=== PATIENT | female | born 1930 | race Caucasian/White ===

== ENCOUNTER 2017-06-08 13:58 | Inpatient (IN) | payer OTHER, MEDICAID ==
[~2017-06-08] VITALS: Ht 144.8 cm; Wt 54.9 kg
[2017-06-08 14:24] VITALS: BP 135/68
[2017-06-08] MEDS ORDERED: ALBUTEROL SULFATE/IPRATROPIU 3 ML SOL IH ONE ×2 (14:40→16:00)
[2017-06-08 15:13] LABS: BASOPHILS # (AUTO) 0.1 K/uL (0.00-0.22); BASOPHILS % (AUTO) 2.4 % (0.0-2.0); EOSINOPHILS % (AUTO) 0.4 % (0.0-4.0); HEMATOCRIT 42.8 % (36-48); HEMOGLOBIN 14.1 g/dL (12.0-16.0); LYMPHOCYTES # (AUTO) 1.1 K/uL (2.5-16.5); LYMPHOCYTES % (AUTO) 18.6 % (20.5-51.1); MEAN CORPUSCULAR HEMOGLOBIN 30 pg (27-31); MEAN CORPUSCULAR HGB CONC 33 g/dL (33-37); MEAN CORPUSCULAR VOLUME 91 fL (80-94); MONOCYTES # (AUTO) 0.9 K/uL (0.8-1.0); MONOCYTES % (AUTO) 14.9 % (1.7-9.3); NEUTROPHILS # (AUTO) 3.9 K/uL (1.8-7.7); NEUTROPHILS % (AUTO) 63.7 % (42.2-75.2); PLATELET COUNT (AUTO) 172 K/uL (140-450); RED BLOOD CELL COUNT(AUTO) 4.72 MIL/uL (4.20-5.40); RED CELL DISTRIBUTION WIDTH 11.8 % (11.6-13.7)
[2017-06-08 15:30] LABS: ANION GAP 12.8 (8-16); CARBON DIOXIDE 29.7 mmol/L (21-32); CHLORIDE 102 mmol/L (98-107); CREATININE 1.3 mg/dL (0.6-1.3); GLUCOSE 187 mg/dL (74-106); POTASSIUM 3.5 mmol/L (3.5-5.1); SODIUM SERUM 141 mmol/L (136-145); UREA NITROGEN, BLOOD 25 mg/dL (7-18)
[2017-06-08 15:43] LABS: ALBUMIN 3.6 g/dL (3.4-5.0); ASPARTATE AMINOTRANSFERASE 16 U/L (15-37); TOTAL BILIRUBIN 0.7 mg/dL (0.0-1.0)
[2017-06-08] MEDS ORDERED: LEVOFLOXACIN 750 MG/D5W PREMIX 150 ML IV ONE (16:00)
[2017-06-08] MEDS ORDERED: NACL 0.9% 1,000 ML IV ONE (16:00)
[2017-06-08] MEDS ORDERED: HYDROcodone/APAP 7.5/325 MG 1 TAB PO PRN (16:20)
[2017-06-08] MEDS ORDERED: ONDANSETRON 4 MG/2 ML VIAL IVP PRN (16:20)
[2017-06-08] MEDS ORDERED: ACETAMINOPHEN 325 MG TAB PO PRN (16:20)
[2017-06-08] MEDS ORDERED: ALBUTEROL SULFATE/IPRATROPIU 3 ML SOL IH PRN (16:25)
[2017-06-08] MEDS ORDERED: CLINDAMYCIN 600 MG in DEXTROSE 5% 50 ML IV ONE (16:25)
[2017-06-08 17:29] LABS: PROTHROMBIN TIME 10.5 secs (10.8-13.4)
[2017-06-08] MEDS: NACL 0.9% 1,000 ML IV SCH (17:30)
[2017-06-08] MEDS ORDERED: ERGO2000 PO (17:45)
[2017-06-08] MEDS ORDERED: ATEN25TA7 PO (17:45)
[2017-06-08 18:00] LABS: CHOL/HDL RATIO 2.8 (1-4.5); FREE T4 (FREE THYROXINE) 1.25 ng/dL (0.76-1.46); MAGNESIUM 2.3 mg/dL (1.8-2.4); PHOSPHORUS 3.7 mg/dL (2.5-4.9); THYROID STIMULATING HORMONE 0.57 uIU/mL (0.34-3.74)
[2017-06-08] MEDS ORDERED: NITROGLYCERIN 0.4 MG TAB SL PRN (18:05)
[2017-06-08 18:10] VITALS: BP 152/71
[2017-06-08] MEDS: ALBUTEROL SULFATE/IPRATROPIU 3 ML SOL IH SCH (19:13)
[2017-06-08 20:00] VITALS: BP 136/48
[2017-06-08] MEDS ORDERED: CLINDAMYCIN 600 MG/4 ML VIAL ONE (20:07)
[2017-06-08] MEDS: DOCUSATE SODIUM 100 MG GELCAP PO SCH (20:54)
[2017-06-08] MEDS: ATORVASTATIN 20 MG TAB PO SCH (20:55)
[2017-06-08] MEDS: CLINDAMYCIN 600 MG in DEXTROSE 5% 50 ML IV SCH (21:05)
[2017-06-09] VITALS: BP 119/56
[2017-06-09 04:00] VITALS: BP 145/55
[2017-06-09] MEDS ORDERED: CLINDAMYCIN 600 MG/4 ML VIAL ONE (05:24)
[2017-06-09] MEDS: CLINDAMYCIN 600 MG in DEXTROSE 5% 50 ML IV SCH ×3 (05:31→21:39)
[2017-06-09 06:01] LABS: BASOPHILS # (AUTO) 0.1 K/uL (0.00-0.22); BASOPHILS % (AUTO) 2.1 % (0.0-2.0); EOSINOPHILS % (AUTO) 0.5 % (0.0-4.0); HEMATOCRIT 35.3 % (36-48); LYMPHOCYTES % (AUTO) 20.8 % (20.5-51.1); MEAN CORPUSCULAR HEMOGLOBIN 31 pg (27-31); MEAN CORPUSCULAR HGB CONC 34 g/dL (33-37); MEAN CORPUSCULAR VOLUME 90 fL (80-94); MONOCYTES # (AUTO) 0.8 K/uL (0.8-1.0); MONOCYTES % (AUTO) 16.9 % (1.7-9.3); NEUTROPHILS # (AUTO) 2.9 K/uL (1.8-7.7); NEUTROPHILS % (AUTO) 59.7 % (42.2-75.2); PLATELET COUNT (AUTO) 137 K/uL (140-450); RED BLOOD CELL COUNT(AUTO) 3.92 MIL/uL (4.20-5.40); RED CELL DISTRIBUTION WIDTH 12.1 % (11.6-13.7); WHITE BLOOD COUNT (AUTO) 4.8 K/uL (4.8-10.8)
[2017-06-09] MEDS: ALBUTEROL SULFATE/IPRATROPIU 3 ML SOL IH SCH ×3 (06:25→19:44)
[2017-06-09 07:13] LABS: MAGNESIUM 2.1 mg/dL (1.8-2.4); PHOSPHORUS 3.7 mg/dL (2.5-4.9)
[2017-06-09 07:18] LABS: ANION GAP 13.2 (8-16); CARBON DIOXIDE 26.4 mmol/L (21-32); CHLORIDE 107 mmol/L (98-107); CREATININE 0.9 mg/dL (0.6-1.3); GLUCOSE 124 mg/dL (74-106); POTASSIUM 3.6 mmol/L (3.5-5.1); SODIUM SERUM 143 mmol/L (136-145); UREA NITROGEN, BLOOD 25 mg/dL (7-18)
[2017-06-09 08:00] VITALS: BP 139/58
[2017-06-09] MEDS: DOCUSATE SODIUM 100 MG GELCAP PO SCH ×2 (09:14→21:40)
[2017-06-09] MEDS: ASPIRIN 81 MG TAB.CHEW PO SCH (09:15)
[2017-06-09] MEDS: LISINOPRIL 5 MG TAB PO SCH (09:15)
[2017-06-09 12:00] VITALS: BP 166/73
[2017-06-09] MEDS: NACL 0.9% 1,000 ML IV SCH (12:53)
[2017-06-09] MEDS ORDERED: ATENOLOL 25 MG TAB PO SCH (14:00)
[2017-06-09 16:00] VITALS: BP 141/59
[2017-06-09 20:00] VITALS: BP 115/76
[2017-06-09] MEDS: ATORVASTATIN 20 MG TAB PO SCH (21:40)
[2017-06-10] VITALS: BP 155/66
[2017-06-10 04:00] VITALS: BP 155/68
[2017-06-10] MEDS: CLINDAMYCIN 600 MG in DEXTROSE 5% 50 ML IV SCH ×2 (05:34→13:17)
[2017-06-10 06:37] LABS: HEMOGLOBIN 12.2 g/dL (12.0-16.0); MEAN CORPUSCULAR HEMOGLOBIN 31 pg (27-31); MEAN CORPUSCULAR HGB CONC 34 g/dL (33-37); MEAN CORPUSCULAR VOLUME 91 fL (80-94); PLATELET COUNT (AUTO) 154 K/uL (140-450); RED BLOOD CELL COUNT(AUTO) 3.95 MIL/uL (4.20-5.40); RED CELL DISTRIBUTION WIDTH 12.6 % (11.6-13.7); WHITE BLOOD COUNT (AUTO) 5.9 K/uL (4.8-10.8)
[2017-06-10 06:38] LABS: ANION GAP 11.4 (8-16); CARBON DIOXIDE 26.3 mmol/L (21-32); CHLORIDE 107 mmol/L (98-107); CREATININE 0.7 mg/dL (0.6-1.3); GLUCOSE 115 mg/dL (74-106); LYMPHOCYTES % (AUTO) 21.7 % (20.5-51.1); MONOCYTES % (AUTO) 12.8 % (1.7-9.3); NEUTROPHILS % (AUTO) 63.7 % (42.2-75.2); POTASSIUM 3.7 mmol/L (3.5-5.1); SODIUM SERUM 141 mmol/L (136-145); UREA NITROGEN, BLOOD 16 mg/dL (7-18)
[2017-06-10 06:39] LABS: BASOPHILS % (AUTO) 0.4 % (0.0-2.0); EOSINOPHILS # (AUTO) 0.1 K/uL (0-0.4); EOSINOPHILS % (AUTO) 1.4 % (0.0-4.0); LYMPHOCYTES # (AUTO) 1.3 K/uL (2.5-16.5); MONOCYTES # (AUTO) 0.8 K/uL (0.8-1.0); NEUTROPHILS # (AUTO) 3.7 K/uL (1.8-7.7)
[2017-06-10 06:49] LABS: MAGNESIUM 1.9 mg/dL (1.8-2.4); PHOSPHORUS 3.2 mg/dL (2.5-4.9)
[2017-06-10] MEDS: ALBUTEROL SULFATE/IPRATROPIU 3 ML SOL IH SCH ×2 (06:52→13:12)
[2017-06-10 08:00] VITALS: BP 154/64
[2017-06-10] MEDS: NACL 0.9% 1,000 ML IV SCH (08:17)
[2017-06-10] MEDS ORDERED: ATENOLOL 25 MG TAB PO SCH (09:00)
[2017-06-10] MEDS ORDERED: CHOLECALCIFEROL 1,000 IU TAB PO SCH (09:00)
[2017-06-10] MEDS ORDERED: LEVOFLOXACIN 750 MG/D5W PREMIX 150 ML IV SCH (09:00)
[2017-06-10] MEDS ORDERED: ERGOCALCIFEROL PO SCH (09:00)
[2017-06-10] MEDS: DOCUSATE SODIUM 100 MG GELCAP PO SCH (09:21)
[2017-06-10] MEDS: ASPIRIN 81 MG TAB.CHEW PO SCH (09:21)
[2017-06-10] MEDS: LISINOPRIL 5 MG TAB PO SCH (09:22)
[2017-06-10 12:07] VITALS: BP 176/61
[2017-06-10] MEDS ORDERED: LACT-2 (12:45)
[2017-06-10] MEDS ORDERED: LEVO750T2 PO (12:45)
[2017-06-10] MEDS ORDERED: CLIN300C2 PO (12:45)
[2017-06-10] MEDS ORDERED: LISINOPRIL 20 MG TAB PO SCH (13:30)
[2017-06-10] MEDS ORDERED: LISI-420 PO (15:29)
[2017-06-10] MEDS ORDERED: ALBU0.0912 IH (15:29)
[2017-06-10 16:00] VITALS: BP 144/59
[2017-06-11] MEDS ORDERED: LISINOPRIL 20 MG TAB PO SCH ×2 (09:00)
== END 2017-06-10 16:45 | disposition home or self-care (01) | DRG 177 ==
LOC: MED 13:58 → UNDOADMIN 16:21 → MTU 16:21
PROVIDERS: ADMIT Family Medicine; ATTEND Family Medicine
DX: J69.0 Pneumonitis due to inhalation of food and vomit (principal); J96.01 Acute respiratory failure with hypoxia; N17.0 Acute kidney failure with tubular necrosis; R65.10 Systemic inflammatory response syndrome (SIRS) of non-infectious origin without acute organ dysfunction; M94.0 Chondrocostal junction syndrome [Tietze]; E66.3 Overweight; I10 Essential (primary) hypertension; Z68.26 Body mass index [BMI] 26.0-26.9, adult; Z88.0 Allergy status to penicillin
CPT/HCPCS: 36415; 71045; 80048; 80053; 82150; 83036; 83605; 83690; 83735; 83880; 84100; 84439; 84443; 84484; 85025; 85610; 85730; 87040; 87081; 93005; 94640; 99285; J1956; J3490; J7030; J7060; J7620; Q0092

== ENCOUNTER 2017-06-12 11:02 | Emergency (ER) | payer OTHER, MEDICAID ==
[~2017-06-12] VITALS: Ht 152.4 cm; Wt 72.6 kg
[~2017-06-12 11:02] MED LIST: ALBU0.0912 IH; ATEN25TA7 PO; CLIN300C2 PO; ERGO2000 PO; LACT-2; LEVO750T2 PO; LISI-420 PO
[2017-06-12 11:09] VITALS: BP 158/82
[2017-06-12] MEDS ORDERED: VITD1000 PO (11:16)
[2017-06-12] MEDS ORDERED: BACI1CAP6 PO (11:17)
[2017-06-12] MEDS ORDERED: LISI-420 PO (11:17)
[2017-06-12] MEDS ORDERED: CLIN300C2 PO (11:17)
[2017-06-12] MEDS ORDERED: ALBUTEROL 0.083% 2.5 MG/3 ML NEBU INH ONE (12:40)
[2017-06-12] MEDS ORDERED: methylPREDNISolone SS 125 MG/2 ML VIAL IVP ONE (12:40)
[2017-06-12] MEDS ORDERED: IPRATROPIUM 0.02% 0.5 MG/2.5 ML NEBU INH ONE (12:40)
[2017-06-12 13:41] LABS: BASOPHILS # (AUTO) 0.1 K/uL (0.00-0.22); EOSINOPHILS # (AUTO) 0.1 K/uL (0-0.4); HEMOGLOBIN 12.8 g/dL (12.0-16.0); LYMPHOCYTES # (AUTO) 1.2 K/uL (2.5-16.5); LYMPHOCYTES % (AUTO) 13.8 % (20.5-51.1); MEAN CORPUSCULAR HEMOGLOBIN 30 pg (27-31); MEAN CORPUSCULAR HGB CONC 34 g/dL (33-37); MEAN CORPUSCULAR VOLUME 88 fL (80-94); MONOCYTES # (AUTO) 0.6 K/uL (0.8-1.0); NEUTROPHILS # (AUTO) 6.5 K/uL (1.8-7.7); NEUTROPHILS % (AUTO) 77.2 % (42.2-75.2); PLATELET COUNT (AUTO) 202 K/uL (140-450); RED BLOOD CELL COUNT(AUTO) 4.32 MIL/uL (4.20-5.40); RED CELL DISTRIBUTION WIDTH 11.8 % (11.6-13.7); WHITE BLOOD COUNT (AUTO) 8.5 K/uL (4.8-10.8)
[2017-06-12 14:24] VITALS: BP 134/75
[2017-06-12 16:19] LABS: ANION GAP 13.6 (8-16); CARBON DIOXIDE 26.5 mmol/L (21-32); CHLORIDE 104 mmol/L (98-107); CREATININE 0.9 mg/dL (0.6-1.3); GLUCOSE 127 mg/dL (74-106); POTASSIUM 4.1 mmol/L (3.5-5.1); SODIUM SERUM 140 mmol/L (136-145); UREA NITROGEN, BLOOD 18 mg/dL (7-18)
[2017-06-12 16:26] LABS: ALBUMIN 3.2 g/dL (3.4-5.0); ASPARTATE AMINOTRANSFERASE 17 U/L (15-37); TOTAL BILIRUBIN 0.4 mg/dL (0.0-1.0)
== END 2017-06-12 14:23 | disposition home or self-care (01) ==
LOC: MED 11:02
DX: J45.909 Unspecified asthma, uncomplicated (principal); F17.210 Nicotine dependence, cigarettes, uncomplicated; Z71.6 Tobacco abuse counseling; I10 Essential (primary) hypertension; Z88.0 Allergy status to penicillin
CPT/HCPCS: 36415; 71045; 80053; 83735; 83880; 84484; 85025; 85379; 93005; 94640; 96374; 99285; J2930; J7613; J7644; Q0092

== ENCOUNTER 2018-11-29 11:16 | Emergency (ER) | payer OTHER, MEDICAID ==
[~2018-11-29] VITALS: Ht 152.4 cm; Wt 72.6 kg
[~2018-11-29 11:16] MED LIST changes: -ATEN25TA7 PO; +BACI1CAP6 PO; -ERGO2000 PO; -LACT-2; +VITD1000 PO
--- NOTE | 2018-11-29 11:24 | NUR ---
PT BIB WHEELCHAIR TO ER BED 6
[2018-11-29 11:25] VITALS: BP 145/76
[2018-11-29] MEDS ORDERED: LISI10TA11 PO (11:30)
[2018-11-29] MEDS ORDERED: ERGO2000 PO (11:30)
[2018-11-29] MEDS ORDERED: ATEN25TA7 PO (11:30)
--- NOTE | 2018-11-29 11:40 | NUR ---
Labs drawn and walked over to lab. IV established to left AC, 20 gauge, flushed with NS flush.
[2018-11-29 11:52] LABS: BASOPHILS % (AUTO) 0.5 % (0.0-2.0); EOSINOPHILS % (AUTO) 0.3 % (0.0-4.0); HEMATOCRIT 39.9 % (36-48); HEMOGLOBIN 13.3 g/dL (12.0-16.0); LYMPHOCYTES # (AUTO) 0.8 K/uL (2.5-16.5); LYMPHOCYTES % (AUTO) 9.3 % (20.5-51.1); MEAN CORPUSCULAR HEMOGLOBIN 31 pg (27-31); MEAN CORPUSCULAR HGB CONC 33 g/dL (33-37); MEAN CORPUSCULAR VOLUME 92.1 fL (80-94); MONOCYTES # (AUTO) 0.6 K/uL (0.8-1.0); MONOCYTES % (AUTO) 7.3 % (1.7-9.3); NEUTROPHILS # (AUTO) 6.9 K/uL (1.8-7.7); NEUTROPHILS % (AUTO) 82.6 % (42.2-75.2); PLATELET COUNT (AUTO) 189 K/uL (140-450); RED BLOOD CELL COUNT(AUTO) 4.33 MIL/uL (4.20-5.40); RED CELL DISTRIBUTION WIDTH 13.2 % (11.6-13.7)
--- NOTE | 2018-11-29 11:53 | NUR ---
Patient returned from CT scan. RN re-evaluating patient at bedside.
[2018-11-29 11:56] LABS: WHITE BLOOD COUNT (AUTO) 8.3 K/uL (4.8-10.8)
--- NOTE | 2018-11-29 11:58 | NUR ---
Bib by son sent from clinic for evaluation of left sided abdominal of 10/10 continous, aching pain since last night. Denies N/V/D, denies fever or chills. Lower left abdomen is round, soft and tender to touch. Hx: HTN Allergies: Penicillin
[2018-11-29 12:07] LABS: ALBUMIN 3.8 g/dL (3.4-5.0); ANION GAP 12.3 (8-16); ASPARTATE AMINOTRANSFERASE 13 U/L (15-37); CARBON DIOXIDE 27.6 mmol/L (21-32); CHLORIDE 103 mmol/L (98-107); GLUCOSE 116 mg/dL (74-106); LIPASE 291 U/L (73-393); POTASSIUM 3.9 mmol/L (3.5-5.1); SODIUM SERUM 139 mmol/L (136-145); TOTAL BILIRUBIN 0.7 mg/dL (0.0-1.0); UREA NITROGEN, BLOOD 23 mg/dL (7-18)
--- NOTE | 2018-11-29 12:22 | NUR ---
Provided patient a urinal hat. Unable to obtain urine.
[2018-11-29] MEDS ORDERED: MORPHINE SULFATE 4 MG/ML SYR IVP ONE (13:15)
[2018-11-29] MEDS ORDERED: NACL 0.9% 1,000 ML IV ONE (13:35)
--- NOTE | 2018-11-29 13:43 | NUR ---
Emmanuel taken to CT scan via guryudi by
--- NOTE | 2018-11-29 13:57 | NUR ---
Patient returned from CT scan.
--- NOTE | 2018-11-29 14:47 | NUR ---
Dr. Blake re-evaluating patient at bedside.
[2018-11-29 16:00] VITALS: BP 165/66
--- NOTE | 2018-11-29 16:05 | NUR ---
Patient discharged with v/s stable. Written and verbal after care instructions given and explained. Patient alert, oriented and verbalized understanding of instructions. Ambulatory with steady gait. All questions addressed prior to discharge. ID band removed. Patient advised to follow up with PMD. Rx of MOTRIN 800MG, ZOFRAN 8MG, NORCO 5MG-325MG given. Patient educated on indication of medication including possible reaction and side effects. Opportunity to ask questions provided and answered.
[2018-12-02] MEDS ORDERED: HYDR-5122 PO (13:27)
[2018-12-02] MEDS ORDERED: CIPR500T4 PO (13:27)
== END 2018-11-29 16:00 | disposition home or self-care (01) ==
LOC: MED 11:16
DX: S37.012A Minor contusion of left kidney, initial encounter (principal); N28.1 Cyst of kidney, acquired; I10 Essential (primary) hypertension; Z79.899 Other long term (current) drug therapy; Z88.0 Allergy status to penicillin; X58.XXXA Exposure to other specified factors, initial encounter; Y93.89 Activity, other specified; Y92.89 Other specified places as the place of occurrence of the external cause; Y99.8 Other external cause status
CPT/HCPCS: 36415; 74176; 74177; 80053; 81002; 83690; 85025; 96374; 99284; J2270; J7030; Q9967

== ENCOUNTER 2018-12-16 10:25 | Emergency (ER) | payer OTHER, MEDICAID ==
[~2018-12-16] VITALS: Ht 137.2 cm; Wt 55.0 kg
[~2018-12-16 10:25] MED LIST changes: -ALBU0.0912 IH; +ATEN25TA7 PO; -BACI1CAP6 PO; +CIPR500T4 PO; -CLIN300C2 PO; +ERGO2000 PO; +HYDR-5122 PO; -LEVO750T2 PO; -LISI-420 PO; +LISI10TA11 PO; -VITD1000 PO
[2018-12-16 10:33] VITALS: BP 164/71
--- NOTE | 2018-12-16 10:57 | NUR ---
PATIENT AMBULATED TO BED 8
--- NOTE | 2018-12-16 11:04 | NUR ---
ECG BEING DONE AT THE BEDSIDE.
--- NOTE | 2018-12-16 11:10 | NUR ---
DR SZYMANSKI AT BEDSIDE FOR PT EVALUATION
[2018-12-16 11:30] LABS: BASOPHILS % (AUTO) 0.4 % (0.0-2.0); EOSINOPHILS # (AUTO) 0.1 K/uL (0-0.4); EOSINOPHILS % (AUTO) 0.9 % (0.0-4.0); HEMATOCRIT 31.1 % (36-48); HEMOGLOBIN 10.3 g/dL (12.0-16.0); LYMPHOCYTES # (AUTO) 0.8 K/uL (2.5-16.5); LYMPHOCYTES % (AUTO) 12.6 % (20.5-51.1); MEAN CORPUSCULAR HEMOGLOBIN 31 pg (27-31); MEAN CORPUSCULAR HGB CONC 33 g/dL (33-37); MEAN CORPUSCULAR VOLUME 92.8 fL (80-94); MONOCYTES # (AUTO) 0.5 K/uL (0.8-1.0); MONOCYTES % (AUTO) 8.1 % (1.7-9.3); NEUTROPHILS # (AUTO) 4.8 K/uL (1.8-7.7); PLATELET COUNT (AUTO) 307 K/uL (140-450); RED BLOOD CELL COUNT(AUTO) 3.35 MIL/uL (4.20-5.40); RED CELL DISTRIBUTION WIDTH 13.5 % (11.6-13.7); WHITE BLOOD COUNT (AUTO) 6.2 K/uL (4.8-10.8)
--- NOTE | 2018-12-16 11:37 | NUR ---
PT BIB SON WITH ABNORMAL ECG TODAY AT PCP OFFICE, REFFERED BY OLIVIA ENCINAS. HX OF HTN. PT AAOX4, BREATHING EVEN AND NON-LABORED. DENIES ANY CP OR SOB AT THIS TIME. DENIES ANY FEVER, CHILLS, N OR VOMITING.
[2018-12-16 11:39] LABS: ANION GAP 9.8 (8-16); CARBON DIOXIDE 28.4 mmol/L (21-32); CHLORIDE 107 mmol/L (98-107); GLUCOSE 110 mg/dL (74-106); POTASSIUM 4.2 mmol/L (3.5-5.1); SODIUM SERUM 141 mmol/L (136-145); UREA NITROGEN, BLOOD 27 mg/dL (7-18)
[2018-12-16 11:46] LABS: ALBUMIN 3.3 g/dL (3.4-5.0); ASPARTATE AMINOTRANSFERASE 16 U/L (15-37); TOTAL BILIRUBIN 0.4 mg/dL (0.0-1.0)
[2018-12-16 13:10] VITALS: BP 155/68
--- NOTE | 2018-12-16 13:10 | NUR ---
Patient discharged with v/s stable. Written and verbal after care instructions given and explained. Patient alert, oriented and verbalized understanding of instructions. Ambulatory with steady gait. All questions addressed prior to discharge. ID band removed. Patient advised to follow up with PMD. Rx of LASIX given. Patient educated on indication of medication including possible reaction and side effects. Opportunity to ask questions provided and answered.
== END 2018-12-16 13:10 | disposition home or self-care (01) ==
LOC: MED 10:25
DX: R60.0 Localized edema (principal); I10 Essential (primary) hypertension; Z88.0 Allergy status to penicillin; Z79.899 Other long term (current) drug therapy
CPT/HCPCS: 36415; 71045; 80053; 83880; 84484; 85025; 93005; 99284; Q0092

== ENCOUNTER 2019-02-11 03:39 | Inpatient (IN) | payer OTHER, MEDICAID ==
[~2019-02-11] VITALS: Ht 144.8 cm; Wt 58.1 kg
[2019-02-11 03:47] VITALS: BP 139/67
[2019-02-11] MEDS ORDERED: NACL 0.9% 1,000 ML IV ONE ×2 (04:00→05:10)
[2019-02-11] MEDS ORDERED: ONDANSETRON 4 MG ODT PO ONE (04:00)
[2019-02-11] MEDS ORDERED: FAMOTIDINE 20 MG/2 ML VIAL IVP ONE (04:00)
[2019-02-11 04:13] LABS: BASOPHILS % (AUTO) 0.5 % (0.0-2.0); EOSINOPHILS # (AUTO) 0.2 K/uL (0-0.4); EOSINOPHILS % (AUTO) 1.6 % (0.0-4.0); HEMATOCRIT 36.8 % (36-48); HEMOGLOBIN 12.2 g/dL (12.0-16.0); LYMPHOCYTES # (AUTO) 1.1 K/uL (2.5-16.5); LYMPHOCYTES % (AUTO) 11.3 % (20.5-51.1); MEAN CORPUSCULAR HEMOGLOBIN 31 pg (27-31); MEAN CORPUSCULAR HGB CONC 33 g/dL (33-37); MONOCYTES # (AUTO) 0.5 K/uL (0.8-1.0); MONOCYTES % (AUTO) 4.8 % (1.7-9.3); NEUTROPHILS # (AUTO) 8.1 K/uL (1.8-7.7); NEUTROPHILS % (AUTO) 81.8 % (42.2-75.2); PLATELET COUNT (AUTO) 183 K/uL (140-450); RED CELL DISTRIBUTION WIDTH 13.4 % (11.6-13.7); WHITE BLOOD COUNT (AUTO) 9.9 K/uL (4.8-10.8)
[2019-02-11 04:32] LABS: ALBUMIN 3.5 g/dL (3.4-5.0); ASPARTATE AMINOTRANSFERASE 19 U/L (15-37); CARBON DIOXIDE 25.4 mmol/L (21-32); CHLORIDE 104 mmol/L (98-107); GLUCOSE 156 mg/dL (74-106); LIPASE 350 U/L (73-393); POTASSIUM 3.4 mmol/L (3.5-5.1); SODIUM SERUM 139 mmol/L (136-145); TOTAL BILIRUBIN 0.3 mg/dL (0.0-1.0); UREA NITROGEN, BLOOD 31 mg/dL (7-18)
[2019-02-11] MEDS ORDERED: ONDANSETRON 4 MG/2 ML VIAL IVP ONE (04:40)
[2019-02-11] MEDS ORDERED: METOCLOPRAMIDE 10 MG/2 ML INJ VIAL IVP ONE (05:10)
[2019-02-11] MEDS ORDERED: MORPHINE SULFATE 4 MG/ML SYR IVP ONE (05:15)
[2019-02-11] MEDS ORDERED: HYDR12.51 PO (09:35)
[2019-02-11 09:42] LABS: APPEARANCE,URINE CLEAR (CLEAR); BILIRUBIN,URINE NEGATIVE (NEGATIVE); BLOOD, URINE TRACE-L (NEGATIVE); COLOR,URINE YELLOW (YELLOW); LEUKOCYTE ESTERASE ,URINE NEGATIVE (NEGATIVE); NITRITE, URINE NEGATIVE (NEGATIVE); PH,URINE 5.5 (5.0-9.0); UGLUCOSE NEGATIVE (NEGATIVE)
[2019-02-11] MEDS ORDERED: metroNIDAZOLE 500 MG/NS PREMIX 100 ML IV ONE (10:55)
[2019-02-11] MEDS ORDERED: LEVOFLOXACIN 500 MG/D5W PREMIX 100 ML IV ONE (10:55)
[2019-02-11] MEDS ORDERED: ACETAMINOPHEN 325 MG TAB PO PRN (11:15)
[2019-02-11] MEDS ORDERED: ONDANSETRON 4 MG/2 ML VIAL IVP PRN (11:15)
[2019-02-11] MEDS ORDERED: MORPHINE SULFATE 4 MG/ML SYR IVP PRN (11:15)
[2019-02-11] MEDS ORDERED: ALBUTEROL 0.083% 2.5 MG/3 ML NEBU IH PRN (11:15)
[2019-02-11] MEDS ORDERED: HYDROcodone/APAP 5/325 MG 1 TAB TAB PO PRN (11:15)
[2019-02-11 11:41] LABS: PROTHROMBIN TIME 9.9 secs (10.8-13.4)
[2019-02-11] MEDS ORDERED: KCL 20 MEQ/WATER INJ PREMIX 200 ML IV SCH (12:00)
[2019-02-11] MEDS: metroNIDAZOLE 500 MG/NS PREMIX 100 ML IV SCH ×2 (13:00→22:07)
[2019-02-11] MEDS: NACL 0.9% 1,000 ML IV SCH (13:40)
[2019-02-11] MEDS: cloNIDine 0.1 MG TAB PO PRN ×2 (15:02→15:05)
[2019-02-11 20:00] VITALS: BP 152/74
[2019-02-12] VITALS: BP 155/71
[2019-02-12] MEDS: NACL 0.9% 1,000 ML IV SCH ×2 (03:09→13:26)
[2019-02-12] MEDS: metroNIDAZOLE 500 MG/NS PREMIX 100 ML IV SCH ×3 (06:40→21:10)
[2019-02-12 07:26] LABS: BASOPHILS % (AUTO) 0.8 % (0.0-2.0); EOSINOPHILS # (AUTO) 0.1 K/uL (0-0.4); EOSINOPHILS % (AUTO) 0.8 % (0.0-4.0); HEMATOCRIT 33.9 % (36-48); HEMOGLOBIN 11.1 g/dL (12.0-16.0); LYMPHOCYTES % (AUTO) 16.9 % (20.5-51.1); MEAN CORPUSCULAR HEMOGLOBIN 30 pg (27-31); MEAN CORPUSCULAR HGB CONC 33 g/dL (33-37); MONOCYTES # (AUTO) 0.5 K/uL (0.8-1.0); MONOCYTES % (AUTO) 8.6 % (1.7-9.3); NEUTROPHILS # (AUTO) 4.5 K/uL (1.8-7.7); NEUTROPHILS % (AUTO) 72.9 % (42.2-75.2); PLATELET COUNT (AUTO) 160 K/uL (140-450); RED BLOOD CELL COUNT(AUTO) 3.65 MIL/uL (4.20-5.40); RED CELL DISTRIBUTION WIDTH 13.6 % (11.6-13.7); WHITE BLOOD COUNT (AUTO) 6.2 K/uL (4.8-10.8)
[2019-02-12 07:56] VITALS: BP 170/79
[2019-02-12] MEDS: LEVOFLOXACIN 500 MG/D5W PREMIX 100 ML IV SCH (08:05)
[2019-02-12] MEDS: ATENOLOL 25 MG TAB PO SCH (08:05)
[2019-02-12 08:21] LABS: MAGNESIUM 1.7 mg/dL (1.8-2.4); PHOSPHORUS 2.3 mg/dL (2.5-4.9)
[2019-02-12 09:05] VITALS: BP 152/60
[2019-02-12 10:27] LABS: CREATININE 0.7 mg/dL (0.6-1.3); POTASSIUM 3.9 mmol/L (3.5-5.1); SODIUM SERUM 142 mmol/L (136-145); UREA NITROGEN, BLOOD 14 mg/dL (7-18)
[2019-02-12 11:20] LABS: ANION GAP 13.9 (8-16); CHLORIDE 108 mmol/L (98-107); GLUCOSE 95 mg/dL (74-106)
[2019-02-12] MEDS ORDERED: MAG SULF 2000 MG/WATER PREMIX 50 ML IV SCH (14:00)
[2019-02-12] MEDS: cloNIDine 0.1 MG TAB PO PRN (21:13)
[2019-02-12 23:50] VITALS: BP 121/55
[2019-02-13] MEDS: NACL 0.9% 1,000 ML IV SCH ×2 (03:38→17:50)
[2019-02-13] MEDS: metroNIDAZOLE 500 MG/NS PREMIX 100 ML IV SCH ×3 (04:19→22:02)
[2019-02-13 07:00] LABS: BASOPHILS % (AUTO) 0.4 % (0.0-2.0); EOSINOPHILS # (AUTO) 0.1 K/uL (0-0.4); EOSINOPHILS % (AUTO) 0.9 % (0.0-4.0); HEMATOCRIT 34.2 % (36-48); HEMOGLOBIN 11.2 g/dL (12.0-16.0); LYMPHOCYTES % (AUTO) 14.7 % (20.5-51.1); MEAN CORPUSCULAR HEMOGLOBIN 30 pg (27-31); MEAN CORPUSCULAR HGB CONC 33 g/dL (33-37); MONOCYTES # (AUTO) 0.6 K/uL (0.8-1.0); MONOCYTES % (AUTO) 9.5 % (1.7-9.3); NEUTROPHILS % (AUTO) 74.5 % (42.2-75.2); PLATELET COUNT (AUTO) 169 K/uL (140-450); RED BLOOD CELL COUNT(AUTO) 3.71 MIL/uL (4.20-5.40); RED CELL DISTRIBUTION WIDTH 13.4 % (11.6-13.7); WHITE BLOOD COUNT (AUTO) 6.8 K/uL (4.8-10.8)
[2019-02-13 07:06] LABS: PHOSPHORUS 2.4 mg/dL (2.5-4.9)
[2019-02-13 08:00] VITALS: BP 145/54
[2019-02-13] MEDS: LEVOFLOXACIN 500 MG/D5W PREMIX 100 ML IV SCH (08:56)
[2019-02-13] MEDS: ATENOLOL 25 MG TAB PO SCH (08:56)
[2019-02-13 10:15] LABS: ANION GAP 13.1 (8-16); CARBON DIOXIDE 23.4 mmol/L (21-32); CHLORIDE 107 mmol/L (98-107); GLUCOSE 108 mg/dL (74-106); POTASSIUM 3.5 mmol/L (3.5-5.1); SODIUM SERUM 140 mmol/L (136-145); UREA NITROGEN, BLOOD 12 mg/dL (7-18)
[2019-02-13 10:22] LABS: CREATININE 0.8 mg/dL (0.6-1.3)
[2019-02-13 16:00] VITALS: BP 153/65
[2019-02-13 20:30] VITALS: BP 178/72
[2019-02-13] MEDS: cloNIDine 0.1 MG TAB PO PRN (22:04)
[2019-02-13 23:02] VITALS: BP 121/63
[2019-02-14 00:30] VITALS: BP 138/66
[2019-02-14] MEDS: metroNIDAZOLE 500 MG/NS PREMIX 100 ML IV SCH ×2 (06:14→12:46)
[2019-02-14] MEDS: NACL 0.9% 1,000 ML IV SCH (06:15)
[2019-02-14 06:53] LABS: BASOPHILS % (AUTO) 0.5 % (0.0-2.0); EOSINOPHILS # (AUTO) 0.1 K/uL (0-0.4); EOSINOPHILS % (AUTO) 0.8 % (0.0-4.0); HEMATOCRIT 36.5 % (36-48); LYMPHOCYTES # (AUTO) 1.2 K/uL (2.5-16.5); LYMPHOCYTES % (AUTO) 17.7 % (20.5-51.1); MEAN CORPUSCULAR HEMOGLOBIN 30 pg (27-31); MEAN CORPUSCULAR HGB CONC 33 g/dL (33-37); MEAN CORPUSCULAR VOLUME 92.3 fL (80-94); MONOCYTES # (AUTO) 0.6 K/uL (0.8-1.0); MONOCYTES % (AUTO) 9.6 % (1.7-9.3); NEUTROPHILS # (AUTO) 4.7 K/uL (1.8-7.7); NEUTROPHILS % (AUTO) 71.4 % (42.2-75.2); PLATELET COUNT (AUTO) 164 K/uL (140-450); RED BLOOD CELL COUNT(AUTO) 3.95 MIL/uL (4.20-5.40); RED CELL DISTRIBUTION WIDTH 13.3 % (11.6-13.7); WHITE BLOOD COUNT (AUTO) 6.5 K/uL (4.8-10.8)
[2019-02-14 07:21] LABS: ANION GAP 11.3 (8-16); CARBON DIOXIDE 25.2 mmol/L (21-32); CHLORIDE 108 mmol/L (98-107); CREATININE 0.7 mg/dL (0.6-1.3); GLUCOSE 108 mg/dL (74-106); POTASSIUM 3.5 mmol/L (3.5-5.1); SODIUM SERUM 141 mmol/L (136-145); UREA NITROGEN, BLOOD 9 mg/dL (7-18)
[2019-02-14 07:25] LABS: MAGNESIUM 1.7 mg/dL (1.8-2.4); PHOSPHORUS 2.6 mg/dL (2.5-4.9)
[2019-02-14 08:00] VITALS: BP 152/79
[2019-02-14] MEDS: LEVOFLOXACIN 500 MG/D5W PREMIX 100 ML IV SCH (08:35)
[2019-02-14] MEDS: ATENOLOL 25 MG TAB PO SCH (08:35)
[2019-02-14] MEDS ORDERED: MIDAZOLAM 2 MG/2 ML VIAL ONE (13:50)
[2019-02-14] MEDS ORDERED: fentaNYL 0.05 MG/ML VIAL ONE (13:50)
[2019-02-14] MEDS: cloNIDine 0.1 MG TAB PO PRN (15:24)
[2019-02-14 16:00] VITALS: BP 128/57
[2019-02-14 16:54] VITALS: BP 130/66
== END 2019-02-14 19:15 | disposition home or self-care (01) | DRG 913 ==
LOC: MED 03:39 → MTU 11:14
PROVIDERS: ADMIT Internal Medicine Pulmonary Disease; ATTEND Internal Medicine Pulmonary Disease
PROC: 0T913ZX Drainage of Left Kidney, Percutaneous Approach, Diagnostic (ICD-10-PCS; principal; 2019-02-14)
DX: S36.892A Contusion of other intra-abdominal organs, initial encounter (principal); K68.19 Other retroperitoneal abscess; E87.6 Hypokalemia; I10 Essential (primary) hypertension; X58.XXXA Exposure to other specified factors, initial encounter; Z88.0 Allergy status to penicillin; Z79.899 Other long term (current) drug therapy; Y93.89 Activity, other specified; Y92.89 Other specified places as the place of occurrence of the external cause; Y99.8 Other external cause status
CPT/HCPCS: 36415; 80048; 80053; 81003; 83690; 83735; 84100; 84484; 85025; 85610; 85730; 87040; 87070; 87075; 87081; 87086; 87205; 96361; 96365; 96367; 96375; 99285; J1956; J2250; J2270; J2405; J2765; J3010; J3475; J3480; J3490; J7030; Q9967

== ENCOUNTER 2019-02-15 20:21 | Emergency (ER) | payer OTHER, MEDICAID ==
[~2019-02-15] VITALS: Ht 149.9 cm; Wt 54.5 kg
[~2019-02-15 20:21] MED LIST changes: -CIPR500T4 PO; -ERGO2000 PO; -HYDR-5122 PO; +HYDR12.51 PO; -LISI10TA11 PO
[2019-02-15 20:32] VITALS: BP 159/73
--- NOTE | 2019-02-15 20:45 | NUR ---
PT AMBULATED TO BED 06.
--- NOTE | 2019-02-15 21:00 | NUR ---
88 Y/O F BIB FAMILY C/O CHEST PAIN X1 HOUR. PT FELT NAUSEA AND SOB. PT FELT LIKE SHE WAS SHAKEY AND WAS SWEATING. PER PT FAMILY PT DID NOT FEEL SWEATY. PT CHEST PAIN STAYS IN CENTER OF CHEST, DOES NOT RADIATE. PAIN LEVEL 10/10, PRESSURE AND TIGHT. PAIN COMES AND GOES. ALLERGIES: PENICILLIN. MED HX: HTN. SAFETY MEASURES IN PLACE. ERMD MADE AWARE OF PT STATUS.
[2019-02-15 22:01] LABS: BASOPHILS % (AUTO) 0.4 % (0.0-2.0); EOSINOPHILS % (AUTO) 0.5 % (0.0-4.0); HEMATOCRIT 35.6 % (36-48); HEMOGLOBIN 11.8 g/dL (12.0-16.0); LYMPHOCYTES # (AUTO) 0.8 K/uL (2.5-16.5); LYMPHOCYTES % (AUTO) 10.8 % (20.5-51.1); MEAN CORPUSCULAR HEMOGLOBIN 31 pg (27-31); MEAN CORPUSCULAR HGB CONC 33 g/dL (33-37); MEAN CORPUSCULAR VOLUME 91.9 fL (80-94); MONOCYTES # (AUTO) 0.9 K/uL (0.8-1.0); NEUTROPHILS # (AUTO) 5.9 K/uL (1.8-7.7); NEUTROPHILS % (AUTO) 76.3 % (42.2-75.2); PLATELET COUNT (AUTO) 172 K/uL (140-450); RED BLOOD CELL COUNT(AUTO) 3.87 MIL/uL (4.20-5.40); RED CELL DISTRIBUTION WIDTH 13.5 % (11.6-13.7); WHITE BLOOD COUNT (AUTO) 7.8 K/uL (4.8-10.8)
--- NOTE | 2019-02-15 22:11 | NUR ---
PT CHEST PAIN 12/04, ERMD MADE AWARE
[2019-02-15] MEDS ORDERED: fentaNYL 0.05 MG/ML VIAL IVP ONE (22:15)
[2019-02-15] MEDS ORDERED: ONDANSETRON 4 MG/2 ML VIAL IVP ONE (22:15)
[2019-02-15 22:23] LABS: CARBON DIOXIDE 26.4 mmol/L (21-32); CHLORIDE 107 mmol/L (98-107); GLUCOSE 119 mg/dL (74-106); POTASSIUM 3.4 mmol/L (3.5-5.1); SODIUM SERUM 140 mmol/L (136-145); UREA NITROGEN, BLOOD 18 mg/dL (7-18)
[2019-02-15 22:27] LABS: ALBUMIN 3.1 g/dL (3.4-5.0); ASPARTATE AMINOTRANSFERASE 41 U/L (15-37); LIPASE 267 U/L (73-393); TOTAL BILIRUBIN 0.3 mg/dL (0.0-1.0)
--- NOTE | 2019-02-15 23:00 | NUR ---
PT RESTING IN BED WITH EYES CLOSED, EASILY ARROUSABLE. VSS. FAMILY AT BEDSIDE. WILL CONTINUE TO MONITOR.
--- NOTE | 2019-02-15 23:45 | NUR ---
DR. JARA AT PT BEDSIDE.
--- NOTE | 2019-02-15 23:55 | NUR ---
STOOD THE PT UP AT BEDSIDE PER ERMD'S REQUEST, SHE STATED SHE FELT FINE AND DENIED ANY DIZZINESS.
[2019-02-16 00:06] VITALS: BP 176/76
--- NOTE | 2019-02-16 00:06 | NUR ---
Patient discharged with v/s stable. Pt encouraged to follow up with PCP tomorrow. Written and verbal after care instructions given and explained. Patient verbalized understanding. Ambulatory with steady gait. All questions addressed prior to discharge. Advised to follow up with PMD.
== END 2019-02-16 00:06 | disposition home or self-care (01) ==
LOC: MED 20:21
DX: R07.9 Chest pain, unspecified (principal); R06.00 Dyspnea, unspecified; R53.1 Weakness; I10 Essential (primary) hypertension; Z79.899 Other long term (current) drug therapy; Z88.0 Allergy status to penicillin
CPT/HCPCS: 36415; 71045; 80053; 82550; 82553; 83690; 84484; 85025; 93005; 96374; 96375; 99284; J2405; J3010